=== PATIENT | female | born 1990 | race Caucasian/White ===

== ENCOUNTER 2020-04-21 06:13 | Inpatient (IN) ==
[2020-04-21] MEDS ORDERED: ONDANSETRON 4 MG TAB.RAPDIS PO PRN (06:27)
[2020-04-21] MEDS ORDERED: RINGER'S SOLUTION,LACTATED 1,000 ML IV ONE (06:27)
[2020-04-21] MEDS ORDERED: OXYTOCIN/DEXTROSE 5%-WATER 30 UNITS/500 ML BAG IV ONE ×2 (06:27→17:23)
[2020-04-21] MEDS ORDERED: DEXTROSE 5%-LACTATED RINGERS 1,000 ML IV PRN (06:27)
--- NOTE | 2020-04-21 08:47 | HP ---
Chief Complaint - Chief Complaint Date of Service: 04/21/20 Time of Service: 08:43 Chief Complaint: induction of labor for post dates History of Present Illness: 29 yo at 40 4/7 weeks presents for induction of labor due to postdates. This complicated by h/o frequent headaches and UTIs. Rh positive Rubella immune GBS negative Medical History (Last Reviewed 04/21/20 @ 08:45 by Antonio Kaur DO) Currently Onset Date: ~09/30/17 Chronic headaches Onset Date: Unknown Seasonal allergies Galactorrhea in female Onset Date: ~08/31/17 Influenza A Onset Date: ~09/30/17 Sinusitis Onset Date: Unknown Urinary tract infection Onset Date: Unknown Surgical History: Surgical History (Last Reviewed 04/21/20 @ 08:45 by Antonio Kaur DO) H/O endoscopy Onset Date: ~2009 [place] teeth extracted Onset Date: Unknown age 11 Family History: Family History (Last Reviewed 04/21/20 @ 08:45 by Antonio Kaur DO) Grandmother Cancer colon with mets to brain-paternal Father Diabetes Hypothyroidism Grandfather Cancer colon-maternal Mother Cancer lung/esophageal, skin Social History: (Last Reviewed 04/21/20 @ 08:45 by Antonio Kaur DO) Social History: Marital status: household members: spouse, children current occupational status: employed 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 current occupational exposures/hazards: No Highest education level completed: Bachelor's degree Service: No Tobacco: Smoking Status: Never smoker Alcohol: alcohol intake: current alcohol intake frequency: holiday/special occasion details: none with Substance Use: substance use type: does not use Dietary Habits: caffeine: Yes Type: coffee Exercise: Physical activity type: none Personal Safety: victim of physical abuse: No Review Of Systems (GEN) - Review of Systems Generalized/Overall Review: Present: No Symptoms Reported EENTM: Present: No Symptoms Reported Respiratory: Present: No Symptoms Reported Cardiac: Present: No Symptoms Reported Abdominal: Present: No Symptoms Reported Genitourinary: Present: No Symptoms Reported Musculoskeletal: Present: No Symptoms Reported Neurological: Present: No Symptoms Reported Skin: Present: No Symptoms Reported Endocrine: Present: No Symptoms Reported Immunizations: IMMUNIZATION HX Immunizations Up to Date Yes Allergies/Adverse Reactions: Allergies Allergy/AdvReac Type Severity Reaction Status Date / Time Sulfa (Sulfonamide Allergy Severe Hives Verified 04/21/20 06:30 Antibiotics) Home Medications: HOME MEDICATIONS cranberry 400 mg capsule 400 mg PO DAILY 03/28/18 [Last Taken 04/20/20] Pnv95/Iron Fum/Folic Acid [ Tablet] 1 ea PO DAILY 05/14/18 [Last Taken 04/20/20] Exam - Exam Vital Signs: Vital Signs - Last Taken Temp 37.0 C 04/21/20 06:30 Pulse 127 H 04/21/20 06:30 Resp 20 04/21/20 06:30 BP 108/69 04/21/20 06:30 Pulse Ox 97 04/21/20 06:30 Constitutional: Present: Alert, Oriented x3, Cooperative, No distress - nervous ENT Exam: Present: hearing grossly normal Neck: Present: non-tender. Absent: thyromegaly Breasts: Present: Exam deferred Respiratory: Present: lungs clear, no respiratory distress Cardiovascular/Chest: Present: no edema, no murmur, tachycardia Abdomen: Present: soft, nontender, no rebound tenderness, other - gravid /Rectal: Present: Other - Cervix 3-4/75/-2 Extremity: Present: no pedal edema, no calf tenderness Skin Exam: Present: normal color, warm/dry, no cyanosis Lymphatic: Present: no adenopathy Neurologic: Present: alert, normal mood/affect - mildly anxious, oriented x 3 Appearance: Present: appropriate appearance, appropriate insight Eye contact: Present: cooperative, good eye contact Thoughts: Present: normal thought pattern, normal mood /affect Assessment/Plan - Assessment/Plan (1) Post-dates Assessment: Admit for pitocin induction of labor. Epidural PRN. Problem: Acute Qualifiers: Post-term type: 40-42 weeks gestation Qualified Code(s): O48.0 - Post-term
--- NOTE | 2020-04-21 08:51 | PN ---
Progess Note - Interim Date: 04/21/20 Time: 08:30 Narrative: 04/21/20 08:50 Patient rating her contractions as mild Vital signs stable. Pitocin at 2 mu/min. FHT: 140 baseline, reassuring contractions q 2-3 min Cervix: 2 to 3 minutes. AROM-mild meconium Impression: Intrauterine at 40 4/7 weeks induction of labor for postdates. Plan: Continue present plan
[2020-04-21] MEDS ORDERED: BUPIVACAINE HCL/0.9 % NACL/PF 250 ML EP PRN (13:00)
[2020-04-21] MEDS ORDERED: NALOXONE HCL 1 MG/1 ML SYRG IV PRN (13:00)
[2020-04-21] MEDS ORDERED: ONDANSETRON HCL/PF 2 MG/ML VIAL IV PRN (13:00)
[2020-04-21] MEDS ORDERED: fentaNYL CITRATE/PF 50 MCG/ML AMPUL IT SCH (13:00)
--- NOTE | 2020-04-21 14:09 | ANES ---
Post Anesthesia Assessment - Vital Signs Vitals: Last Vital Signs Temp 37.0 C 04/21/20 06:30 Pulse 127 H 04/21/20 06:30 Resp 20 04/21/20 06:30 BP 108/69 04/21/20 06:30 Pulse Ox 97 04/21/20 06:30 Airway Patency: Normal - Mental Status Level Of Consciousness: Awake - Pain Level Pain Score: 2 - N/V Assessment Nausea/Vomiting Presence: None Dehydration:: No
--- NOTE | 2020-04-21 14:09 | ANES ---
Anesthesia Pre Procedure Eval Vitals/Labs: Last Vital Signs Temp 37.0 C 04/21/20 06:30 Pulse 127 H 04/21/20 06:30 Resp 20 04/21/20 06:30 BP 108/69 04/21/20 06:30 Pulse Ox 97 04/21/20 06:30 HOME MEDICATIONS cranberry 400 mg capsule 400 mg PO DAILY 03/28/18 [Last Taken 04/20/20] Pnv95/Iron Fum/Folic Acid [ Tablet] 1 ea PO DAILY 05/14/18 [Last Taken 04/20/20] Allergies/Adverse Reactions: Allergies Allergy/AdvReac Type Severity Reaction Status Date / Time Sulfa (Sulfonamide Allergy Severe Hives Verified 04/21/20 06:30 Antibiotics) - Planned Procedure Planned Procedure: medical induction for post dates Medication List Reviewed:: Yes Allergies Verified: Yes Medical History (Last Reviewed 04/21/20 @ 14:08 by Neto Torres CRNA) Currently Onset Date: ~09/30/17 Chronic headaches Onset Date: Unknown Seasonal allergies Galactorrhea in female Onset Date: ~08/31/17 Influenza A Onset Date: ~09/30/17 Sinusitis Onset Date: Unknown Urinary tract infection Onset Date: Unknown Surgical History (Last Reviewed 04/21/20 @ 14:08 by Neto Torres CRNA) H/O endoscopy Onset Date: ~2009 [place] teeth extracted Onset Date: Unknown age 11 Family History (Last Reviewed 04/21/20 @ 14:08 by Neto Torres CRNA) Grandmother Cancer colon with mets to brain-paternal Father Diabetes Hypothyroidism Grandfather Cancer colon-maternal Mother Cancer lung/esophageal, skin - Family Anesthesia History Family History:: no untoward family reactions to anesthesia - Airway/Neck/Teeth Within Normal Limits:: Yes Teeth Condition: intact Neck Exam: full range of motion Mallampatti Score: 1 Thyromental (T-M) distance: > 6 cm Mandibulo Hyoid distance: > 3 cm - Respiratory Respiratory Physical: lungs clear Smoking Status: Never smoker Sleep Apnea currently treated: No Sleep Apnea by current assessment: No - Cardiovascular Tolerate Activity: Good Heart Sounds: S1 & S2, Regular - Gastrointestinal NPO since: 1200 - Anesthesia Assessment and Plan ASA Class: PS, II, E Anesthesia Type Plan: Epidural Planned difficult intubation/equipment available: No
--- NOTE | 2020-04-21 14:09 | ANES ---
Post Anesthesia Discharge - Transfer of Care Transfer of Care handoff given to nurse: Yes - Anesthesia Post Op Note Anesthesia Post Op Note: care transferred to OB RN
--- NOTE | 2020-04-21 14:11 | ANES ---
Anesthesia Procedure Note Procedure Note: ANESTHESIA PROCEDURE NOTE Date of Procedure: 04/21/2020 Time of procedure: 50. Performed by: Leoncio Torres CRNA Gas Line Servicer: None. Preprocedure diagnosis: Active labor. Post procedure diagnosis: Same. Procedure: Insertion of labor epidural. Indications: The patient is a 29-year-old multigravida female in active labor requesting labor epidural for pain management. Findings: See below. Details of the procedure: The patient was placed in a sitting position. Back was prepped with DuraPrep. Patient was then draped in a sterile fashion. Lidocaine 1% was infiltrated to the skin and subcutaneous tissues at the level of the L3 4 interspace. The epidural space was identified using a 18-gauge Tuohy needle with [id number] technique. 20 mcg fentanyl was given intrathecally using a 27 ga. spinal needle. Epidural catheter was inserted without difficulty. Negative test dose was elicited using 5 mL of 1.5% preservative-free lidocaine plus epinephrine 1 200,000. The epidural catheter was then taped and secured in place. EBL: Minimal. Fluids: N/A. Specimen: N/A. Post procedure condition: The patient tolerated the procedure well. No complications were noted. Thank you for this consultation. Adame CRNA
[2020-04-21] MEDS ORDERED: HYDROCORTISONE 30 APPL TUBE TP PRN (17:23)
[2020-04-21] MEDS ORDERED: oxyCODONE HCL/ACETAMINOPHEN 1 TAB TABLET PO PRN (17:23)
[2020-04-21] MEDS ORDERED: BENZOCAINE/MENTHOL 81 SPRAY CAN TP PRN (17:23)
[2020-04-21] MEDS ORDERED: BISACODYL 10 MG SUPP.RECT RC PRN (17:23)
[2020-04-21] MEDS ORDERED: IBUPROFEN 800 MG TABLET PO PRN (17:23)
[2020-04-21] MEDS ORDERED: SENNOSIDES 8.6 MG TABLET PO PRN (17:23)
[2020-04-21] MEDS ORDERED: GLYCERIN/WITCH HAZEL LEAF 40 APPL BOX TP PRN (17:23)
--- NOTE | 2020-04-21 17:27 | OR ---
Operative Report - Dictated Report Narrative: Spontaneous vaginal delivery of vigorously crying viable female at 1705 on 04/21/2020 with Apgars 9 and 9, weighing 3681 g and AZAM position with meconium stained fluid and terminal meconium. Cord clamping delayed approximately 1 minute Placenta delivered complete, intact, with three vessel cord Estimated blood loss: Less than 50 ml Anesthesia: Epidural Lacerations: None History for MU History for MU Definition: * The number of deliveries resulting in a live the patient experienced prior to current hospitalization * The previous delivery of live twins or any live multiple gestation is considered one live event. *If primagravida or nulliparous is documented select zero for the number of previous live births. Live Events: Live Events: 1
[2020-04-21] MEDS: IBUPROFEN 800 MG TABLET PO PRN (20:21)
[2020-04-21] MEDS: DOCUSATE SODIUM 100 MG CAPSULE PO SCH (20:21)
[2020-04-22] MEDS: IBUPROFEN 800 MG TABLET PO PRN ×2 (02:27→19:09)
--- NOTE | 2020-04-22 07:09 | PN ---
Subjective - Date and Time Seen Date: 04/22/20 Time: 07:09 Objective - Vitals Vitals: Last Vital Signs Temp 36.9 C 04/22/20 00:44 Pulse 54 L 04/22/20 00:44 Resp 16 04/22/20 00:44 BP 110/51 04/22/20 00:44 Pulse Ox 98 04/22/20 00:44 Patient denies complaints. Lochia wnl abdomen - soft, nontender Uterus -firm, at umbilicus - 1 no calf tenderness Impression: day #1 - s/p spontaneous vaginal delivery. Plan: Continue routine care Cauti Physician Documentation - Urinary Catheter Management Urethral ([place]man) Date of Insertion: 04/21/20 Time of Insertion: 14:30 Date of Removal: 04/21/20 Time of Removal: 16:50 Assessment/Plan - Problems/Diagnosis (1) Post-dates Problem: Acute Qualifiers: Post-term type: 40-42 weeks gestation Qualified Code(s): O48.0 - Post-term
[2020-04-22] MEDS: DOCUSATE SODIUM 100 MG CAPSULE PO SCH ×2 (12:31→20:37)
[2020-04-22] MEDS: CRANBERRY 400 MG PO SCH (20:40)
[2020-04-23] MEDS: DOCUSATE SODIUM 100 MG CAPSULE PO SCH ×2 (07:56→08:29)
[2020-04-23] MEDS: IBUPROFEN 800 MG TABLET PO PRN (07:56)
--- NOTE | 2020-04-23 08:09 | PN ---
Subjective - Date and Time Seen Date: 04/23/20 Time: 08:08 Objective - Vitals Vitals: Last Vital Signs Temp 36.9 C 04/23/20 02:23 Pulse 72 04/23/20 02:23 Resp 18 04/23/20 02:23 BP 114/55 04/23/20 02:23 Pulse Ox 96 04/23/20 02:23 Patient denies complaints. Breast-feeding well Lochia wnl abdomen - soft, nontender Uterus -firm, at umbilicus - 2 no calf tenderness Impression: day #2 - s/p spontaneous vaginal delivery. Plan: Routine discharge instructions Cauti Physician Documentation - Urinary Catheter Management Urethral ([place]man) Date of Insertion: 04/21/20 Time of Insertion: 14:30 Date of Removal: 04/21/20 Time of Removal: 16:50 Assessment/Plan - Problems/Diagnosis (1) Post-dates Problem: Acute Qualifiers: Post-term type: 40-42 weeks gestation Qualified Code(s): O48.0 - Post-term
[2020-04-23 08:29] VITALS: BP 120/73
[2020-04-23] MEDS: CRANBERRY 400 MG PO SCH (08:29)
[2020-04-23] MEDS ORDERED: PNV95 PO SCH (09:00)
[2020-04-23] MEDS ORDERED: IRON FUM PO SCH (09:00)
[2020-04-23] MEDS ORDERED: FOLIC ACID PO SCH (09:00)
[2020-04-23] MEDS ORDERED: PRENATAL VITS96/IRON FUM/FOLIC 1 TAB TABLET PO SCH (09:00)
== END 2020-04-23 10:25 | disposition home or self-care (01) | DRG 807 ==
LOC: OB 06:13
PROVIDERS: ADMIT Obstetrics & Gynecology; ATTEND Obstetrics & Gynecology
CPT/HCPCS: 59025